=== PATIENT | female | born 1970 | race Caucasian/White ===

== ENCOUNTER 2019-04-23 15:42 | Emergency (ER) | payer OTHER, SELFPAY ==
[~2019-04-23] VITALS: Ht 170.2 cm; Wt 89.0 kg
[2019-04-23 17:16] LABS: BASOPHILS # (AUTO) 0.06 x10^3/uL (0-0.1); BASOPHILS % (AUTO) 1 % (0-1); EOSINOPHILS # (AUTO) 0.21 x10^3/uL (0-0.4); EOSINOPHILS % (AUTO) 3 % (1-7); LYMPHOCYTES # (AUTO) 2.52 x10^3/uL (1-3.4); LYMPHOCYTES % (AUTO) 30 % (22-44); MD NO; MEAN CORPUSCULAR HEMOGLOBIN 30.4 pg (27.0-34.8); MEAN CORPUSCULAR HGB CONC 32.8 g/dL (32.4-35.8); MEAN CORPUSCULAR VOLUME 92.7 fL (80-100); MONOCYTES # (AUTO) 0.66 x10^3/uL (0.2-0.8); MONOCYTES % (AUTO) 8 % (2-9); NEUTROPHILS # (AUTO) 4.99 x10^3/uL (1.8-6.8); NEUTROPHILS % (AUTO) 59 % (42-75); PLATELET COUNT 282 x10^3/uL (130-400); RED CELL DISTRIBUTION WIDTH 14.4 % (9.6-15.2)
[2019-04-23 17:20] LABS: ALBUMIN 3.6 g/dL (3.4-5.0); ANION GAP 7 mmol/L (5-15); CALCIUM 8.4 mg/dL (8.5-10.1); CHLORIDE 110 mmol/L (98-107)
[2019-04-23 17:26] LABS: ALANINE AMINOTRANSFERASE 22 U/L (12-78); ALKALINE PHOSPHATASE 64 U/L (45-117); BILIRUBIN,TOTAL 0.5 mg/dL (0.2-1.0); CREATININE 0.97 mg/dL (0.55-1.02); TOTAL PROTEIN 7.1 g/dL (6.4-8.2)
--- NOTE | 2019-04-23 18:51 | NUR ---
pt to room from lobby
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
--- NOTE | 2019-04-23 19:23 | NUR ---
PT AMBULATED TO BATHROOM
--- NOTE | 2019-04-23 19:43 | NUR ---
SHILA VILLALTA IN ROOM DOING A PELVIC
--- NOTE | 2019-04-23 20:43 | NUR ---
patient resting in room. vs stable call light in place. sophia continue to monitor.
--- NOTE | 2019-04-23 21:17 | NUR ---
REPORT RECEIVED, POC DISCUSSED, CARE ASSUMED. PT UP FOR RE-EVALUATION.
[2019-04-23 21:35] VITALS: BP 139/74
--- NOTE | 2019-04-23 21:35 | NUR ---
PT DC'D HOME WITH RX X 1 AND UNDERSTANDING OF INSTRUCTIONS. PT AND TO DC DESK, PT GAIT STEADY.
== END 2019-04-23 21:38 | disposition home or self-care (01) ==
LOC: ED 21:32
DX: N83.202 Unspecified ovarian cyst, left side (principal); D25.9 Leiomyoma of uterus, unspecified; N93.8 Other specified abnormal uterine and vaginal bleeding; D62 Acute posthemorrhagic anemia
CPT/HCPCS: 36415; 76830; 80053; 84703; 85025; 99284

== ENCOUNTER → 2019-08-23 | Outpatient (CLI) | payer OTHER ==
[~2019-08-23] MED LIST: ATOR40TA78 PO; CHOL10003 PO; MULT-658 PO
[2019-08-23 10:24] LABS: MEAN CORPUSCULAR HEMOGLOBIN 20.6 pg (27.0-34.8); MEAN CORPUSCULAR VOLUME 70.2 fL (80-100); PLATELET COUNT 311 x10^3/uL (130-400); RED BLOOD COUNT 3.45 x10^6/uL (3.82-5.3)
[2019-08-23 11:14] LABS: MEAN CORPUSCULAR HGB CONC 29.3 g/dL (32.4-35.8)
[2019-08-23 11:15] LABS: MD YES
[2019-08-23 11:17] LABS: BAND#(MANUAL) 0.05 x10^3/uL; BANDS%(MANUAL) 1 % (0-7); EOS#(MANUAL) 0.11 x10^3/uL (0.0-0.4); EOS% (MANUAL) 2 % (1-7); LYMPH#(MANUAL) 1.38 x10^3/uL (1-3.4); LYMPHS% (MANUAL) 26 % (22-44); MONOS#(MANUAL) 0.48 x10^3/uL (0.3-2.7); MONOS% (MANUAL) 9 % (2-9); SEG#(MANUAL) 3.29 x10^3/uL (1.8-6.8); SEGS% (MANUAL) 62 % (42-75)
[2019-08-23 11:19] LABS: ANISOCYTOSIS 2+; HYPOCHROMIA 2+; MICROCYTOSIS 1+
[2019-08-23 11:21] LABS: <PLATELET ESTIMATE> ADEQUATE; <PLT MORPHOLOGY> NORMAL PLT MORPH; OVALOCYTES 2+
[2019-08-23 11:25] LABS: POLYCHROMASIA 1+
== END | disposition home or self-care (01) ==
LOC: STAR 08:53
PROVIDERS: ATTEND Obstetrics & Gynecology Female Pelvic Medicine and Reconstructive Surgery
DX: Z01.818 Encounter for other preprocedural examination (principal); R58 Hemorrhage, not elsewhere classified; N94.6 Dysmenorrhea, unspecified; N39.3 Stress incontinence (female) (male); N81.10 Cystocele, unspecified
CPT/HCPCS: 36415; 85025; 93005

== ENCOUNTER 2019-08-27 07:34 | Day surgery (SDC) | payer OTHER ==
[~2019-08-27] VITALS: Ht 170.2 cm; Wt 86.2 kg
[~2019-08-27 07:34] MED LIST changes: +BUPIVACAINE/PF-EPI 0.25% 1:200K ONE; +GENTAMICIN 80 MG/2 ML ONE; +VANCOMYCIN 500 MG ONE
[2019-08-27] MEDS ORDERED: LACTATED RINGERS 1,000 ML IV SCH (07:50)
[2019-08-27 07:53] VITALS: BP 144/86
[2019-08-27] MEDS ORDERED: CHLORHEXIDINE 15 ML UDC ONE (07:55)
[2019-08-27] MEDS ORDERED: CHLORHEXIDINE 15 ML UDC MM ONE (08:00)
[2019-08-27 08:06] LABS: HCG UR SG 1.005 (1.003-1.030)
[2019-08-27] MEDS ORDERED: MIDAZOLAM 1 MG/ML, 2ML ONE (09:11)
[2019-08-27] MEDS ORDERED: FENTANYL PF 250 MCG/5ML ONE (09:11)
[2019-08-27] MEDS ORDERED: GABAPENTIN 300 MG CAPSULE ONE ×2 (09:37)
[2019-08-27] MEDS ORDERED: ACETAMINOPHEN 500 MG TABLET ONE ×2 (09:37)
[2019-08-27] MEDS ORDERED: BUPIVACAINE 0.25% ONE (10:33)
[2019-08-27] MEDS ORDERED: ROCURONIUM 10MG/ML,5ML ONE (11:35)
[2019-08-27] MEDS ORDERED: GLYCOPYRROLATE 0.2MG/1ML, 5ML ONE (11:35)
[2019-08-27] MEDS ORDERED: SUCCINYLCHOLINE 20 MG/ML, 10ML ONE (11:35)
[2019-08-27] MEDS ORDERED: DEXAMETHASONE 4 MG/ML, 1ML ONE (11:35)
[2019-08-27] MEDS ORDERED: PROPOFOL 10 MG/ML, 20ML ONE (11:35)
[2019-08-27] MEDS ORDERED: CEFAZOLIN 1,000 MG ONE (11:35)
[2019-08-27] MEDS ORDERED: ONDANSETRON 2MG/ML, 2ML ONE ×2 (11:35→17:48)
[2019-08-27] MEDS ORDERED: NEOSTIGMINE 1 MG/ML, 10ML ONE (11:35)
[2019-08-27] MEDS ORDERED: SUGAMMADEX 200 MG/2 ML IVPush ONE (11:36)
[2019-08-27] MEDS ORDERED: FENTANYL PF 100 MCG/2ML ONE (11:58)
[2019-08-27] MEDS ORDERED: OXYcodone 5 MG/5 ML ORAL.SOL UDC ONE (11:58)
[2019-08-27] MEDS ORDERED: MEPERIDINE/PF 25MG/0.5ML IVPush PRN (12:00)
[2019-08-27] MEDS ORDERED: OXYcodone 5 MG/5 ML ORAL.SOL UDC PO PRN (12:00)
[2019-08-27] MEDS ORDERED: hydrALAzine 20 MG/ML, 1ML IV PRN (12:00)
[2019-08-27] MEDS ORDERED: LABETALOL 5MG/ML, 20ML IV PRN (12:00)
[2019-08-27] MEDS ORDERED: KETOROLAC 30 MG/1 ML IV PRN (12:00)
[2019-08-27] MEDS ORDERED: HYDROmorphone 2 MG/ML, 1ML IVPush PRN (12:00)
[2019-08-27] MEDS ORDERED: ALBUTEROL SULFATE 2.5 MG/3 ML NPPB PRN (12:00)
[2019-08-27] MEDS: FENTANYL PF 100 MCG/2ML IV PRN ×2 (12:00→12:28)
[2019-08-27] MEDS ORDERED: ACETAMINOPHEN 325 MG TABLET PO PRN (12:00)
[2019-08-27] MEDS ORDERED: DIAZEPAM 5 MG/ML, 2ML IVPush PRN (12:00)
[2019-08-27] MEDS ORDERED: PROMETHAZINE 25 MG/ML, 1ML IV PRN (12:00)
[2019-08-27] MEDS ORDERED: ONDANSETRON 2MG/ML, 2ML IVPush PRN (18:00)
[2019-08-27] MEDS ORDERED: KETOROLAC 30 MG/1 ML IVPush PRN (18:00)
== END 2019-08-27 18:30 | disposition home or self-care (01) ==
LOC: OUT 07:34
PROVIDERS: ATTEND Obstetrics & Gynecology Female Pelvic Medicine and Reconstructive Surgery
DX: N92.1 Excessive and frequent menstruation with irregular cycle (principal); Z11.59 Encounter for screening for other viral diseases; N94.6 Dysmenorrhea, unspecified; N81.11 Cystocele, midline; N81.6 Rectocele; N81.5 Vaginal enterocele; N80.0 Endometriosis of uterus; N83.8 Other noninflammatory disorders of ovary, fallopian tube and broad ligament; N83.291 Other ovarian cyst, right side; N83.02 Follicular cyst of left ovary; N94.10 Unspecified dyspareunia; N81.89 Other female genital prolapse; N39.3 Stress incontinence (female) (male); D64.9 Anemia, unspecified; R10.2 Pelvic and perineal pain; I25.2 Old myocardial infarction; Z79.899 Other long term (current) drug therapy; Z88.0 Allergy status to penicillin; Z88.8 Allergy status to other drugs, medicaments and biological substances
CPT/HCPCS: 57265; 57288; 58552; 81025; 88307; C1771; J0690; J1100; J1580; J1885; J2250; J2405; J2704; J3010; J3370; J3490; J7120; U0001; J2710; J0330